=== PATIENT | female | born 1940 | race Caucasian/White ===

== ENCOUNTER 2019-05-16 11:22 | Inpatient (IN) | payer OTHER ==
[~2019-05-16] VITALS: Ht 162.6 cm; Wt 68.1 kg
[2019-05-16 11:23] VITALS: BP 160/63
[2019-05-16 11:57] LABS: ABSOLUTE NEUTROPHILS 3.4 thou/uL (1.4-8.2); BASOPHILS 0.5 % (0.0-2.0); EOSINOPHILS 0.2 % (0.0-3.0); HEMATOCRIT 39.5 % (37.0-47.0); HEMOGLOBIN 12.7 gm/dL (12.0-15.0); LYMPHOCYTES 26.8 % (24.0-44.0); MCH 27.1 pg (26.0-34.0); MCHC 32.2 g/dL (28.0-37.0); MCV 84.2 fL (80.0-100.0); MONOCYTES 11.6 % (1.0-8.0); PLATELET COUNT 171 thou/uL (150-400); POLYS 60.9 % (36.0-66.0); RBC 4.69 mil/uL (4.20-5.00); RDW 15.8 % (10.5-14.5); WBC 5.7 thou/uL (4.0-11.0)
[2019-05-16 12:07] LABS: ANION GAP 6 mmol/L (7-16); BUN 15 mg/dL (7-18); CALCIUM 8.2 mg/dL (8.5-10.1); CHLORIDE 99 mmol/L (98-107); CO2 28 mmol/L (21-32); CREATININE 0.9 mg/dL (0.6-1.0); GLUCOSE 321 mg/dL (74-106); POTASSIUM 4.1 mmol/L (3.5-5.1); SODIUM 133 mmol/L (136-145)
[2019-05-16 12:18] LABS: ALBUMIN 2.7 g/dL (3.4-5.0); SGOT 26 U/L (15-37); SGPT 21 U/L (30-65); TOTAL BILIRUBIN 0.3 mg/dL (<0.1-1.0); TOTAL PROTEIN 7.4 g/dL (6.4-8.2); TROPONIN-I <0.06 ng/mL (<0.06)
[2019-05-16 13:10] VITALS: BP 148/79
[2019-05-16 13:32] VITALS: BP 113/89
--- NOTE | 2019-05-16 13:44 | EKG ---
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
[2019-05-16 14:01] VITALS: BP 164/76
[2019-05-16 15:55] VITALS: BP 165/84
[2019-05-16] MEDS ORDERED: NORVASC 2.5 MG2.5 M1 PO ×2 (17:54→17:56)
[2019-05-16] MEDS ORDERED: LEVO-T100 MCG PO (17:57)
[2019-05-16] MEDS ORDERED: OMEPRAZOLE 20 M20 M1 PO (17:58)
[2019-05-16] MEDS ORDERED: ROSUVASTATIN CA20 MG PO (18:00)
[2019-05-16] MEDS ORDERED: CARVEDILOL25 MG PO (18:03)
[2019-05-16] MEDS ORDERED: KLOR-CON 10 ER10 MEQ PO (18:05)
[2019-05-16] MEDS ORDERED: CLONIDINE HCL0.2 M2 PO (18:08)
[2019-05-16 20:09] VITALS: BP 164/70
[2019-05-17 07:19] VITALS: BP 199/93
[2019-05-17 08:09] VITALS: BP 188/88
[2019-05-17 10:08] VITALS: BP 177/87
[2019-05-17 11:52] VITALS: BP 169/85
[2019-05-17 15:08] VITALS: BP 181/86
[2019-05-17 19:46] VITALS: BP 153/78
[2019-05-18 08:04] VITALS: BP 179/98
[2019-05-18 16:01] VITALS: BP 159/92
[2019-05-18 20:09] VITALS: BP 169/82
[2019-05-18 22:32] VITALS: BP 160/82
[2019-05-19 07:27] LABS: HEMATOCRIT 42.1 % (37.0-47.0); HEMOGLOBIN 13.3 gm/dL (12.0-15.0); MCH 26.6 pg (26.0-34.0); MCHC 31.6 g/dL (28.0-37.0); MCV 84.1 fL (80.0-100.0); RBC 5.01 mil/uL (4.20-5.00); RDW 16.2 % (10.5-14.5); WBC 9.6 thou/uL (4.0-11.0)
[2019-05-19 07:44] LABS: CALCIUM 8.4 mg/dL (8.5-10.1); CREATININE 0.8 mg/dL (0.6-1.0)
[2019-05-19 09:47] VITALS: BP 196/97
[2019-05-19 12:08] VITALS: BP 196/97
[2019-05-19] MEDS ORDERED: IPRAT-ALBUT 0.5-3 ML INH (13:04)
[2019-05-19] MEDS ORDERED: HUMALOG100 UNIT/1 SUBQ (13:05)
[2019-05-19] MEDS ORDERED: LEVAQUIN 750 M750 MG PO (13:06)
[2019-05-19] MEDS ORDERED: PREDNISONE 10 M10 M1 PO (13:09)
[2019-05-20 02:09] LABS: GLYCOHEMOGLOBIN (HGB A1C) 8.9 % (4.8-5.6)
--- NOTE | 2019-05-20 09:07 | HC ---
[facility] [place] [address] CONSULTATION Name: ANKUR ELISE Room #: 412-P [facility] IN M.R.#: [id number] Admission: 05/16/19 Attend Phys: Andre Farooq MD Discharge: 05/19/19 Date of : 42 Report #: [id number] THIS REPORT FOR: cc: Adi Nicole,Mark Carson MD ~ CC: Andre Nicole DATE OF SERVICE: 05/19/2019 ENDOCRINE CONSULTATION NOTE CONSULTING PHYSICIAN: Dr. Aleman. PRIMARY CARE PHYSICIAN: Dr. Adi Nicole. REASON FOR CONSULTATION: Uncontrolled type 2 diabetes mellitus, severe hyperglycemia. HISTORY OF PRESENT ILLNESS: This is a 79-year-old female patient whose medical background is significant for multiple medical issues including COPD, type 2 diabetes mellitus, hypertension, who presented here a few days ago with progressive issues with difficulties breathing and cough and was admitted to manage a seeming exacerbation of her COPD. The patient has been a diabetic for many years and is currently on treatment with Humulin N insulin taken at 50 units once a day. However, she went on to explain that she would variate her intake of NPH to where it could almost be doubled at twice a day. She specifically said that she came off metformin, although she was advised to take it because she believes it is bad for her health following an Internet search that she has done. She is not aware of diabetic retinopathy, diabetic nephropathy, or neuropathy issues. She is not known to have coronary artery disease or CVA in the past. PAST MEDICAL HISTORY: Hypothyroidism. OUTPATIENT MEDICATIONS: Include Humulin N 50 units daily, amlodipine 10 mg daily, levothyroxine 100 mcg daily, omeprazole 20 mg daily, rosuvastatin 20 mg daily, carvedilol 25 mg b.i.d., and clonidine 0.2 mg t.i.d. p.r.n. ALLERGIES: CODEINE, PNEUMOCOCCAL VACCINE AND SULFA. FAMILY HISTORY: Noncontributory. SOCIAL HISTORY: Noted for active tobacco use, no alcohol or illicit drugs. [facility] [address] [place] [address] CONSULTATION Name: BONY ELISECYNTHIA Room #: 412-P [facility] IN [facility].#: [id number] Admission: 05/16/19 Attend Phys: Andre Farooq MD Discharge: 05/19/19 Date of : 42 Report #: [id number] PHYSICAL EXAMINATION: GENERAL: female patient sitting upright in her chair, appears comfortable, a bit agitated, but not in pain or distress. VITAL SIGNS: Blood pressure is 196/97 mmHg, heart rate is 86 beats per minute, respiration 18 per minute, and temperature 36.9 Celsius. CONSTITUTIONAL: She is sitting upright in bed, appears comfortable, not in apparent distress, a bit agitated. HEENT: Anicteric sclerae. Intact ocular motions. NECK: Supple, without JVD, carotid bruits or lymphadenopathy. I do not appreciate thyromegaly. CHEST: Noted for limited air entry bilaterally with scattered rales and rhonchi. HEART: Regular rate and rhythm without murmurs or gallops. ABDOMEN: Soft and lax without tenderness or organomegaly. She has active bowel sounds. EXTREMITIES: Lower extremity exam is noted for a dusky discoloration of both lower extremities, trace ankle edema. No skin breaks or ulcerations. Sensation to light touch is slightly diminished bilaterally. NEUROLOGIC: Awake, alert and oriented to time, place and person. The remainder of her examination is nonfocal other than for sensory deficits over both lower extremities. PSYCHIATRIC: Agitated a little bit, but overall pleasant, interactive, answers my questions appropriately with a normal thought process. LABORATORY DATA: Blood glucose values were reviewed since her arrival and these have run between 159 and 393 mg/dL. Otherwise, sodium 135, potassium 4.0, chloride 101, CO2 of 27, anion gap 7, BUN 15, creatinine 0.8, AST 26, total bilirubin 0.3, calcium 8.4, alkaline phosphatase 80, ALT 21, total protein 7.4, albumin 2.7, and EGFR 69. Lactic acid 0.7. Troponin is negative. BNP 606. White blood count 9.6, hemoglobin 13.3, hematocrit 42.1, platelets 287. TSH is 7.246. ASSESSMENT AND PLAN: 1. Type 2 diabetes mellitus. The patient has fairly poorly controlled outlook baseline judging by her reported blood glucose values with reports of frequent hypoglycemia as well. She believes that her last hemoglobin A1c about 3 months ago was at 11%. The patient was counseled about the importance of achieving and maintaining adequate glycemic control so as to avoid diabetic complications as well as about the importance of avoiding hypoglycemia, which she seemed to understand well. I debated the usefulness of metformin in her regimen, but she is adamant about not taking it due to perceived safety issues. During her hospital stay so far, the patient had to be treated with high dose intravenous steroid therapy, which had led to further exacerbations of her blood sugar values. She is currently on NPH insulin 30 units b.i.d., which is [address] [address] CONSULTATION Name: ANKUR ELISE Room #: 412-P [facility] IN [place]#: [id number] Admission: 05/16/19 Attend Phys: Andre Farooq MD Discharge: 05/19/19 Date of : 42 Report #: [id number] certainly reasonable given her baseline insulin needs. She is also on a Humalog supplemental scale low intensity, which I will advance to moderate intensity. I will also 15 units of Humalog insulin schedule before meals for better post-prandial coverage. I will request a hemoglobin A1c to better assess her overall situation. Blood glucose monitoring will commence a.c. and at bedtime. 2. Hypothyroidism. The patient is clinically euthyroid for the most part, but her TSH is slightly above 7. I will raise her levothyroxine dosage to 125 mcg daily to address this issue. 3. Hypertension. The patient's blood pressure control has been marginal and this might have to do with her intercurrent illness as well as the high dose steroid therapy. She is currently on lisinopril and Norvasc in addition to clonidine. I will defer further adjustments to Dr. Aleman. 3. Hyperlipidemia. The patient was counseled about the importance of maintaining adequate control of hyperlipidemia to prevent diabetic complications. 4. Chronic obstructive pulmonary disease exacerbation. The patient presented with COPD exacerbation and seems to be doing better on the current bronchodilator and IV steroid therapy. Dr. Aleman is managing. I have reviewed the patient's clinical care notes, laboratory data, and other pertinent clinical information for more than 35 minutes. I appreciate this consultation by Dr. Aleman. <ELECTRONICALLY SIGNED> By: Mark Sidhu MD 05/20/19 0907 [id number] Mark Sidhu MD /radha
== END 2019-05-19 16:40 | disposition home or self-care (01) | DRG 193 ==
LOC: ER 11:22 → EROBS 12:56 → 4N 12:56 → 2N 13:43 → 4N 15:42 → ENTRNSPT 05-19 13:51 → EDTRNSPTSTS 05-19 13:54 → 4N 05-19 16:40
PROVIDERS: Hospitalist; Internal Medicine; Nurse Practitioner Family; ADMIT Hospitalist
DX: J18.9 Pneumonia, unspecified organism (principal); J96.01 Acute respiratory failure with hypoxia; J44.1 Chronic obstructive pulmonary disease with (acute) exacerbation; E87.1 Hypo-osmolality and hyponatremia; J44.0 Chronic obstructive pulmonary disease with (acute) lower respiratory infection; F17.210 Nicotine dependence, cigarettes, uncomplicated; K74.60 Unspecified cirrhosis of liver; E11.65 Type 2 diabetes mellitus with hyperglycemia; E03.9 Hypothyroidism, unspecified; E78.5 Hyperlipidemia, unspecified; K21.9 Gastro-esophageal reflux disease without esophagitis; I10 Essential (primary) hypertension; Z90.710 Acquired absence of both cervix and uterus; Z85.89 Personal history of malignant neoplasm of other organs and systems; Z82.49 Family history of ischemic heart disease and other diseases of the circulatory system; Z83.3 Family history of diabetes mellitus; Z88.2 Allergy status to sulfonamides; Z88.7 Allergy status to serum and vaccine; Z88.8 Allergy status to other drugs, medicaments and biological substances; Z79.899 Other long term (current) drug therapy
CPT/HCPCS: 10790